=== PATIENT | male | born 1965 | race Caucasian/White ===

== ENCOUNTER 2019-06-18 10:21 | Inpatient (IN) | payer BC ==
[~2019-06-18] VITALS: Ht 175.3 cm; Wt 91.6 kg
--- OUTSIDE RECORDS SUMMARY | 2019-06-18 10:24 | XMS REPORT ---
Author Author [facility] Address Unknown Phone Unavailable Care Team Providers Care Assisted Living Nursing Director Name Role Phone LE GRIFFITHS Unavailable Unavailable Eliot FRITZ Unavailable Unavailable Problems This patient has no known problems. Allergies, Adverse Reactions, Alerts This patient has no known allergies or adverse reactions. Medications This patient has no known medications. Results Test Description Test Time Test Comments Text Results Atomic Results Result Comments ED2 CT ABD/ PELVIS W/O CON (RENAL [facility]ONE) 2019-06-15 18:07:59 Procedure: ED2 CT ABD/ PELVIS W/O CON (RENAL STONE)Order Date: 06/15/2019 5:23 PMOrdering Provider: LE Kinginical Indication: [id number]: Right sided abdominal painComparison: . 2017TECHNIQUE:CT of the abdomen and pelvis WITHOUT intravenous contrast. The abdomen andpelvis were scanned utilizing a multidetector helical scanner from the diaphragmto the lesser trochanter. Coronal and sagittal re formations were obtained.This exam was performed according to the our departmental dose-optimizationprogram which includes automated exposure control, adjustment of the mA and/orkV according to patient size and/or use of iterative reconstruction techniques.DISCUSSION:ABSENCE OF INTRAVENOUS CONTRAST DECREASES SENSITIVITY FOR DETECTION OF FOCALLESIONS AND VASCULAR PATHOLOGY.LOWER THORAX: Normal.HEPATOBILIARY: No focal hepatic lesions. No biliary ductal dilatation.SPLEEN: No splenomegaly.PANCREAS: No focal masses or ductal dilatation.ADRENALS: No adrenal nodules.KIDNEYS/URETERS: 2-3 mm nonobstructing calculi are present within the bilateralkidneys. There is no hydronephrosis.PELVIC ORGANS/BLADDER: Unremarkable.PERITONEUM / RETROPERITONEUM: No free air or fluid.LYMPH NODES: No lymphadenopathy.VESSELS: Unremarkable.GI TRACT: No distention or wall thickening. The appendix is unremarkable.BONES AND SOFT TISSUES: No acute abnormality.IMPRESSION:1. No obstructive urolithiasis in the bilateral renal collecting systems.2. Nonobstructing bilateral renal calculi.This final report was electronically signed by Dr Alyson Beltran MD 06/15/20196:01 PMDictated By: Eladio BELTRAN: 06/15/2019 18:01 ED2 CBC 2019-06-15 17:56:00 WBC (test code=WBC) 7.3 10\S\9/L 3.5-10.0 LY% (test code=LY) 22.2 % 15.0-50.0 MIDS% (test code=MIDS) 6.0 % 2.0-15.0 Granulocytes % (test code=GRA%) 71.8 % 35.0-80.0 Lymphocytes (test code=LYMPH) 1.6 10\S\9/L 0.5-5.0 MID (test code=MID) 0.5 10\S\9/L 0.1-1.5 Granulocytes (test code=GRAN) 5.2 10\S\9/L 1.2-8.0 RBC (test code=RBC) 5.17 10\S\12/L 3.50-5.50 Hemoglobin (test code=HGB) 16.6 gm/dl 11.5-16.5 Hematocrit (test code=HCT) 49.4 % 35.0-55.0 MCV (test code=MCV) 95.5 fL 75.0-100.0 MCH (test code=MCH) 32.2 pg 25.0-35.0 MCHC (test code=MCHC) 33.7 gm/dl 31.0-38.0 RDW % (test code=RDW%) 12.5 % 11.0-16.0 Platelet (test code=PLT) 197 10\S\9/L 100-400 MPV (test code=MPV) 7.8 fL 8.0-11.0 ED2 [id number] 17:56:00* Test Item Value Reference Range Comments Sodium (test code=NA) 142 mmol/l 128-145 Potassium (test code=K) 4.0 mmol/l 3.6-5.1 CO2 (test code=CO2) 27 mmol/l 18-33 Chloride (test code=CL) 106 mmol/l 98-108 Glucose (test code=GLU) 109 mg/dl 73-118 Calcium (test code=CALC) 9.7 mg/dl 8.0-10.3 BUN (test code=BUN) 12 mg/dl 7-22 Creatinine (test code=CREA) 0.8 mg/dl 0.6-1.2 Alkaline Phos (test code=ALKP) 100 U/L 42-141 ALT (SGPT) (test code=ALT) 66 U/L 10-47 AST (SGOT) (test code=AST) 48 U/L 11-38 Total Bilirubin (test code=TBIL) 1.1 mg/dl 0.2-1.6 Albumin (test code=ALB) 4.2 gm/dl 3.3-5.5 T Protein (test code=TP) 7.3 gm/dl 6.4-8.1 ED2 URINE [id number] 17:55:00* Test Item Value Reference Range Comments Color (test code=UCOLR) Yellow Lt. Yellow Clarity (test code=UCLAR) Clear Glucose (test code=UGLUC) NEGATIVE NEGATIVE Bilirubin (test code=UBILI) NEGATIVE NEGATIVE Ketones (test code=UKET) NEGATIVE NEGATIVE Specific [place] (test code=USPGR) 1.025 1.005-1.030 Blood (test code=UBLD) NEGATIVE NEGATIVE PH (test code=UPH) 6.0 4.5-8.0 Protein (test code=UPROT) NEGATIVE NEGATIVE Urobilinogen (test code=U UROB) 0.2 >0.2 Nitrite (test code=UNITR) NEGATIVE NEGATIVE Leukocyte Esterase (test code=ULEUK) NEGATIVE NEGATIVE URINALYSIS WITH [id number] 02:01:00* Test Item Value Reference Range Comments Color (test code=UCOLR) ORANGE Clarity (test code=UCLAR) CLEAR Glucose (test code=UGLUC) 100 NEGATIVE Bilirubin (test code=UBILI) NEGATIVE NEGATIVE Ketones (test code=UKET) TRACE NEGATIVE Specific [place] (test code=USPGR) 1.015 1.005-1.030 Blood (test code=UBLD) TRACE-LYSED NEGATIVE PH (test code=UPH) 5.0 4.5-8.0 Protein (test code=UPROT) TRACE NEGATIVE Urobilinogen (test code=U UROB) 2.0 >0.2 Nitrite (test code=UNITR) POSITIVE NEGATIVE Leukocyte Esterase (test code=ULEUK) NEGATIVE NEGATIVE WBC (test code=WBCUR) None Seen 0-5 RBC (test code=RBCUR) 5-10 0-5 Epithial Cells (test code=U EPI) None Seen 0-10 Mucous (test code=UMUC) Trace None Seen Bacteria (test code=UBACT) Trace None Seen,Trace ER 8LIPASE, [id number] 01:58:00* Test Item Value Reference Range Comments Lipase (test code=LIPA) 192 U/L 8-223 ER [id number] 01:58:00* Test Item Value Reference Range Comments Glucose (test code=GLU) 104 mg/dl 75-110 BUN (test code=BUN) 13.0 mg/dl 6.0-17.0 Creatinine (test code=CREA) 0.9 mg/dl 0.4-1.2 Sodium (test code=NA) 144 mmol/l 137-145 Potassium (test code=K) 4.2 mmol/l 3.5-5.0 Chloride (test code=CL) 104 mmol/l 98-107 CO2 (test code=CO2) 24 mmol/l 22-30 Calcium (test code=CALC) 9.9 mg/dl 8.4-10.2 T Protein (test code=TP) 8.4 gm/dl 5.1-8.7 Albumin (test code=ALB) 5.0 gm/dl 3.5-4.6 A/G Ratio (test code=AGRAT) 1.5 % 1.1-2.2 AST (SGOT) (test code=AST) 37 U/L 11-36 ALT (SGPT) (test code=ALT) 49 U/L 11-40 Alkaline Phos (test code=ALKP) 79 U/L 47-114 Total Bilirubin (test code=TBIL) 1.0 mg/dl 0.2-1.2 Globulin (test code=GLOBU) 3.4 gm/dl 2.3-3.5 Calcium, Corrected (test code=CALCCORR) 9.1 mg/dl 8.4-10.2 Various formulas exist for corrected serum calcium results, each yielding different values. This corrected result was based on the formula: Corrected Calcium=SerumCalcium + [0.8 * ( 4 - SerumAlbumin)] EGFR if (test code=EGFRAA) >60 mL/min/1.73m\S\2 EGFR if Non- (test code=EGFRNA) >60 mL/min/1.73m\S\2 Estimated Glomerular Filtration Rate (eGFR) Reference Intervals Decision Points for 18 years and older and average body mass: >=60 Does not exclude kidney disease. 30 - 59 Suggests moderate chronic kidney disease and indicates the need for further investigation including assessment of proteinuria and cardiovascular factors. < 30 Usually indicates a need for referral for assessment and management of chronic kidney failure. CBC WITH AUTO [id number] 01:38:00* Test Item Value Reference Range Comments WBC (test code=WBC) 7.0 k/ul 4.8-10.8 RBC (test code=RBC) 5.20 Millions/ul 4.70-6.10 Hemoglobin (test code=HGB) 16.5 gm/dl 14.0-18.0 Hematocrit (test code=HCT) 48.6 % 42.0-50.0 MCV (test code=MCV) 93.4 fL 80.0-94.0 MCH (test code=MCH) 31.7 pg 27.0-31.0 MCHC (test code=MCHC) 33.9 gm/dl 33.0-37.0 RDW (test code=RDWVC) 12.2 % 11.5-14.5 Platelet (test code=PLT) 224 10\S\3/ul 130-400 MPV (test code=MPV) 7.3 fL 7.4-10.4 NE% (test code=NE) 61.2 % 42.0-75.0 LY% (test code=LY) 29.9 % 13.0-42.0 MO% (test code=MO) 7.7 % 4.0-14.0 EO% (test code=EO) 0.9 % 1.0-3.0 BA% (test code=BA) 0.3 % 1.0-3.0 NRBC, Auto (test code=NRBC_AUTO) 0
[2019-06-18 11:02] LABS: BASOPHILS % 0.3 % (0.0-1.0); EOSINOPHILS # (AUTO) 0.1 (0.0-0.4); EOSINOPHILS % 0.9 % (0.0-6.0); HEMATOCRIT 45.6 % (38.2-49.6); HEMOGLOBIN 16.2 g/dL (14.0-18.0); LYMPHOCYTES # (AUTO) 1.7 (1.0-3.2); LYMPHOCYTES % 24.2 % (18.0-39.1); MEAN CORPUSCULAR HEMOGLOBIN 32.3 pg (28-32); MEAN CORPUSCULAR HGB CONC 35.5 g/dL (31-35); MONOCYTES # (AUTO) 0.6 (0.2-0.8); NEUTROPHILS # (AUTO) 4.5 (2.1-6.9); NEUTROPHILS % 65.7 % (38.7-80.0); PLATELET COUNT 232 x10e3/uL (140-360); RED BLOOD COUNT 5.01 x10e6/uL (4.3-5.7); RED CELL DISTRIBUTION WIDTH 11.7 % (11.7-14.4)
[2019-06-18 11:07] LABS: CLARITY,URINE HAZY (CLEAR); COLOR,URINE YELLOW (YELLOW); LEUKOCYTE ESTERASE ,URINE NEGATIVE (NEGATIVE)
[2019-06-18 11:08] LABS: BILIRUBIN,URINE NEGATIVE (NEGATIVE); KETONES,URINE NEGATIVE (NEGATIVE); NITRITE,URINE NEGATIVE (NEGATIVE); PROTEIN,URINE DIPSTICK NEGATIVE (NEGATIVE); URINE UROBILINOGEN 0.2 mg/dL (0.2 - 1)
[2019-06-18 11:14] LABS: BACTERIA,URINE MODERATE /HPF; EPITHELIAL CELLS,URINE MODERATE /LPF; MUCUS,URINE MODERATE (RARE); RBC,URINE 0-5 /HPF (0-5)
[2019-06-18 11:35] LABS: ALANINE AMINOTRANSFERASE 61 IU/L (0-55); ALBUMIN 4.4 g/dL (3.5-5.0); ALBUMIN/GLOBULIN RATIO 1.5 (0.8-2.0); ALKALINE PHOSPHATASE 84 IU/L (40-150); ANION GAP 15.8 mmol/L (8-16); BLOOD UREA NITROGEN 10 mg/dL (7-26); BUN/CREATININE RATIO 10 (6-25); CALCIUM 9.8 mg/dL (8.4-10.2); CARBON DIOXIDE 23 mmol/L (22-29); CHLORIDE 100 mmol/L (98-107); CREATININE, SERUM 1.01 mg/dL (0.72-1.25); EST GLOMERULAR FILTRATION RATE > 60 ML/MIN (60-); GLUCOSE 105 mg/dL (74-118); POTASSIUM 3.8 mmol/L (3.5-5.1); SODIUM 135 mmol/L (136-145)
[2019-06-18] MEDS ORDERED: MORPHINE SULFATE 2 MG/ML SYR 1ML IV STA (11:46)
[2019-06-18] MEDS ORDERED: KETOROLAC TROMETHAMINE 30 MG/ML VIAL IV STA (11:46)
[2019-06-18] MEDS ORDERED: ONDANSETRON HCL INJ 2MG/ML 2ML 2 MG/ML VIAL IV STA (11:46)
[2019-06-18] MEDS ORDERED: SODIUM CHLORIDE 0.9% 1000ML 1,000 ML IV STA (11:46)
[2019-06-18] MEDS ORDERED: DEXAMETHASONE SOD PHOS 10 MG/1 ML VIAL IV ONE (12:00)
--- NOTE | 2019-06-18 13:12 | Diagnostic Imaging Report ---
CT of the abdomen and pelvis History: Groin pain Comparison: None available. Technique: Multidetector CT scanning of the abdomen and pelvis was performed from the level of the lung bases to the inferior pubic ramus, with IV contrast. DOSE REDUCTION: The examination was performed according to departmental dose-optimization program which includes automated exposure control, adjustment of the mA and/or kV according to patient size and/or use of iterative reconstruction technique. Discussion: The lung bases are clear. No focal hepatic lesions are identified. The gallbladder is present nondistended. No radiopaque gallstones are identified. There is no intrahepatic or extrahepatic biliary dilatation. The spleen is within normal limits. The bilateral adrenal glands are unremarkable. The pancreas is normal in attenuation. There is no pancreatic ductal dilatation or peripancreatic inflammatory stranding. The kidneys are normal in size and enhance symmetrically. Nonobstructing renal calculi are present bilaterally. In the upper pole of the right kidney there are 4 mm and 2 mm nonobstructing calculi. In the midpole there is a 3 mm nonobstructing calculus. And in the lower pole there are 3 mm and two 2 mm renal calculi. The left kidney the upper pole contains a 6 mm calculus at a 4 mm calculus. Punctate renal calculi are present in the left midpole. The stomach, small, and large bowel are nondistended. There is no evidence of obstruction. No bowel wall thickening is appreciated. The appendix is normal. There are scattered colonic diverticula without evidence of acute diverticulitis. There is no free intraperitoneal air or ascites. The urinary bladder is within normal limits. The prostate is mildly enlarged measuring 5.1 cm in diameter. No enlarged abdominal or retroperitoneal lymph nodes are identified. There are mild multilevel degenerative changes of the thoracolumbar spine. No acute osseous abnormalities are identified. IMPRESSION: 1. Nonobstructive bilateral renal calculi. 2. Colonic diverticulosis without evidence of acute diverticulitis. 3. Mild prostamegaly. Signed by: Ian Bass MD on 06/18/2019 1:08 PM
[2019-06-18] MEDS: ONDANSETRON HCL INJ 2MG/ML 2ML 2 MG/ML VIAL IV PRN ×2 (15:05→21:46)
[2019-06-18] MEDS: SODIUM CHLORIDE 0.9% 1000ML 1,000 ML IV SCH (15:10)
[2019-06-18] MEDS: HYDROMORPHONE 1MG/1ML INJ IV PRN ×3 (15:15→21:45)
[2019-06-18] MEDS ORDERED: IOPAMIDOL 370 MG/ML 200 ML INFUS..BTL INJ ONE (15:45)
[2019-06-18] MEDS ORDERED: SODIUM CHLORIDE 0.9% 50ML 50 ML ONE (15:45)
--- NOTE | 2019-06-18 18:49 | Diagnostic Imaging Report ---
EXAMINATION: MRI of the lumbar spine without contrast HISTORY: Right low back pain since 06/11/2019 COMPARISON: Abdomen CT performed the same day TECHNIQUE: Sagittal T1, T2, STIR; axial T2 and proton density. FINDINGS: It is assumed that there are 5 lumbar vertebrae. Transitional lumbosacral vertebra, based on the last rib-bearing vertebra will be considered as sacralized L5. The last well-formed intervertebral disc corresponds to L5-S1. Curvature/Alignment: Normal lordosis. Vertebrae: No evidence of recent fracture, infection, or neoplasm. Conus: Normal, terminating at T12-L1 Cauda equina: Circumferential narrowing of the thecal sac at L4-L5 due to canal stenosis with cauda equina crowding. Otherwise unremarkable. Lower thoracic: Minimal symmetric disc bulge at T10-T11 shallow Schmorl nodes without canal or foraminal stenoses. Minimal disc bulge at T12-L1 without canal stenosis Paraspinal soft tissues: Partially visualized remain in distention of the urinary bladder, otherwise no abnormalities. Degenerative changes: L1-L2: Minimal symmetric disc bulge. No canal or foraminal stenosis. L2-L3: Minimal decreased disc height and T2 signal intensity, asymmetric left disc bulge and facet arthropathy. Mild left foraminal narrowing. L3-L4: Decreased disc height and T2 signal intensity, symmetric disc poles, ligament labor beginning of osteonecrosis. Mild canal and bilateral foraminal narrowing worse on the right. L4-L5: Decreased disc height and T2 signal intensity, symmetric disc bulge, ligamenta flava thickening and moderate facet arthropathy. Moderate spinal canal and left foraminal stenoses. Mild right foraminal stenoses L5-S1: Unremarkable. Sacroiliac joints: Unremarkable. IMPRESSION: 1. Moderate degenerative spinal canal and left foraminal stenoses at L4-L5. 2. Mild degenerative canal and bilateral foraminal stenoses at L3-L4. 3. Otherwise no significant degenerative changes. Signed by: Dr. Emma Baxter M.D. on 06/18/2019 6:46 PM
[2019-06-18 21:00] VITALS: BP 158/93
[2019-06-18 21:15] VITALS: BP 158/93
[2019-06-19] VITALS (7 sets, daily range): BP systolic 129–157; BP diastolic 67–92
--- NOTE | 2019-06-19 01:20 | History and Physical ---
This 54-year-old man comes in with groin pain, right-sided. HISTORY OF PRESENT ILLNESS: Mr. Ravinder Garcia with the history of abdominal pain. For over a week, the patient has been suffering from abdominal pain right groin to be specific moderate to severe and has been seen in the ED at [place] for the same. CT scan was done, no acute etiology was seen. The patient was given Tylenol No. 3 and sent home. However, the patient came to his workplace which was and the patient started to have progressive groin pain could not walk on it. He came in the emergency room and was admitted for pain control, intractable inguinal pain. PAST MEDICAL HISTORY: No medical history noted. MEDICATIONS: The patient does not take any medications except the hydrocodone. SURGICAL HISTORY: History of a multiple inguinal surgeries done in the past secondary to inguinal hernia. The patient has no other medical history. SOCIAL HISTORY: No EtOH. No IV drug abuse. Lives with . REVIEW OF SYSTEMS: Negative for chest pain. No shortness of breath. No nausea. No vomiting. No diarrhea. No constipation. No rectal bleeding. No hematochezia. No hematemesis. FAMILY HISTORY: Noncontributory. PHYSICAL EXAMINATION: VITAL SIGNS: Temperature is 98.0, pulse of 99, respirations of 20, blood pressure is 154/117. HEENT: Normocephalic, atraumatic. Pupils are reactive to light and accommodation. CVS: S1 and S2, tachy. ABDOMEN: Tender in the right inguinal area. GENITALIA: The male genital is normal. Testicles are normal. No inguinal hernia present. No direct or indirect hernias present. No ventral hernias present either. LUNGS: Clear. HEART: S1, S2 is normal. On examination of the piggyback clerk in the L2, L3 and L4 area. Specifically, the right-sided paraspinal muscles are tender. LABORATORY VALUES: White count of 6.9, hemoglobin of 16.2, hematocrit of 45.6. Chemistry sodium 135, potassium is 3.8, BUN of 10, creatinine of 1.01. IMAGING STUDIES: Abdominal CT and pelvis CT showed nonobstructive bilateral renal calculi, colonic diverticulosis and mild prostatomegaly. MRI of the lumbar spine is pending. ASSESSMENT: Mr. Ravinder Garcia with intractable abdominal pain probably lumbar in nature L2-L3 or L1-L2 radicular. MRI is done. Awaiting read from the radiologist. Continue with hydromorphone for pain control, if needed Neurosurgical consult will be done for radiculopathy. Further recommendation per clinical course. We will continue to monitor the patient for pain control. Possible discharge tomorrow depending on MRI results and possible neurosurgery consult. MD KEMI Young/ESTHERL /[id number]
[2019-06-19] MEDS: SODIUM CHLORIDE 0.9% 1000ML 1,000 ML IV SCH ×4 (02:41→22:36)
[2019-06-19] MEDS: ONDANSETRON HCL INJ 2MG/ML 2ML 2 MG/ML VIAL IV PRN ×4 (02:41→23:53)
[2019-06-19] MEDS: HYDROMORPHONE 1MG/1ML INJ IV PRN ×9 (02:41→23:53)
[2019-06-19 05:12] LABS: BASOPHILS % 0.1 % (0.0-1.0); EOSINOPHILS % 0.1 % (0.0-6.0); HEMOGLOBIN 15.1 g/dL (14.0-18.0); LYMPHOCYTES # (AUTO) 1.2 (1.0-3.2); LYMPHOCYTES % 12.1 % (18.0-39.1); MEAN CORPUSCULAR HEMOGLOBIN 32.5 pg (28-32); MEAN CORPUSCULAR HGB CONC 35.1 g/dL (31-35); MEAN CORPUSCULAR VOLUME 92.5 fL (81-99); MONOCYTES # (AUTO) 0.9 (0.2-0.8); MONOCYTES % 8.7 % (4.4-11.3); NEUTROPHILS # (AUTO) 7.8 (2.1-6.9); NEUTROPHILS % 78.4 % (38.7-80.0); PLATELET COUNT 240 x10e3/uL (140-360); RED BLOOD COUNT 4.65 x10e6/uL (4.3-5.7); RED CELL DISTRIBUTION WIDTH 11.6 % (11.7-14.4)
[2019-06-19 05:28] LABS: ANION GAP 13.2 mmol/L (8-16); BLOOD UREA NITROGEN 11 mg/dL (7-26); BUN/CREATININE RATIO 11 (6-25); CALCIUM 9.1 mg/dL (8.4-10.2); CARBON DIOXIDE 22 mmol/L (22-29); CHLORIDE 106 mmol/L (98-107); CREATININE, SERUM 0.99 mg/dL (0.72-1.25); EST GLOMERULAR FILTRATION RATE > 60 ML/MIN (60-); GLUCOSE 122 mg/dL (74-118); POTASSIUM 4.2 mmol/L (3.5-5.1); SODIUM 137 mmol/L (136-145)
--- NOTE | 2019-06-19 09:36 | Progress Note ---
DATE: SUBJECTIVE: A 54-year-old male who came in with right inguinal pain. MRI was done. The patient did show some changes in the lumbar vertebrae, continues to have pain, cannot ambulate. On extension of the hip and also on weightbearing, the patient has excruciating pain. He is on Dilaudid 1 mg injections as needed for pain every 6 hours. Currently, otherwise asymptomatic. OBJECTIVE: VITAL SIGNS: Temperature is 97.3, pulse of 94, respirations of 20, blood pressure is 129/70, pulse oximetry of 93% on room air. HEENT: Normocephalic and atraumatic. Pupils are reactive to light and accommodation. CVS: S1 and S2 normal. Regular rate and rhythm. ABDOMEN: Nontender, nondistended. Tender in the lumbar spine. EXTREMITIES: No clubbing, no cyanosis, no edema. IMAGING DATA: MRI results done yesterday shows moderate degenerative spinal and left foraminal stenosis L4-L5, bilateral foraminal stenosis of L3 and L4 and the patient does show beginning of osteonecrosis in L3 and L4 and otherwise degenerative changes. ASSESSMENT: This is a 54-year-old gentleman with intractable pain, probably lumbar in nature. With the amount of pain that he is experiencing, neurosurgical consult will be initiated with Dr. Johnson and follow up with Dr. Johnson is advice. Further recommendation per clinical course. We will continue monitoring the patient. MD KEMI Young/MODL /[id number]
--- NOTE | 2019-06-19 13:53 | NUR ---
Dr. Lainez notified of patient's c/o unrelieved pain 02/17 along with a cough. New orders received.
[2019-06-19] MEDS: KETOROLAC TROMETHAMINE 30 MG/ML VIAL IV PRN (14:04)
[2019-06-19] MEDS: GUAIFENESIN 200 MG/10 ML UDC PO PRN (14:05)
--- NOTE | 2019-06-19 14:35 | NUR ---
Visit made by the Spiritual Care Department Pastoral Visitor, Laila Lugo. PV provided pastoral presence, prayer, hospitality, and supportive listening. Pastoral Visitor informed pt/family of the scope of Manager Housekeeping Services and availability. MANISH LAWSON Twisting Machine Operator Spiritual Care Department O: [phone] Pager: [phone] ([phone] number calling from)
--- NOTE | 2019-06-19 15:30 | NUR ---
Pending consultation by Dr. Johnson for clearance for discharge.
[2019-06-19 18:47] LABS: INR 0.88; PROTHROMBIN TIME 12.4 seconds (11.9-14.5)
--- NOTE | 2019-06-19 23:36 | Operative Report ---
DATE OF PROCEDURE: 06/19/2019 SURGEON: Akash Johnson MD REASON FOR CONSULTATION: Severe low back and right leg pain. HISTORY OF PRESENT ILLNESS: The patient is a 54-year-old man, who was admitted to the emergency room with a one-week history of excruciating low back pain, which radiates to the right groin and down the right leg. He is unable to stand and ambulate as a result of this pain as the pain gets substantially worse with standing. He denies any radiating pain in the left leg. During this admission, other etiologies such as a hernia and obstructive renal calculi have been excluded. Several small nonobstructive renal calculi have been found on CT of the abdomen. The patient does not have any dysuria or hematuria. The groin pain started at the same time as the severe low back and right leg pain. PHYSICAL EXAMINATION: On examination, the patient is lying in his hospital bed on his side in a position. He has great difficulty lying on his back and straightening his legs. Straight leg raising is positive on the right at 20 degrees. Cross straight leg raising on the left provokes right lumbar pain. Motor strength appears to be preserved in the ankles. He is able to sit on the edge of the bed with pain. He can stand for a few seconds with a stooped posture, but develops markedly exacerbated low back pain radiating down the right leg into the groin. Deep tendon reflexes are 2+ and symmetric in the patella and Achilles tendons. Plantar responses are flexor. MRI of the lumbar spine was reviewed. 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 He has severe L4-L5 bilateral facet arthropathy, which produces moderately severe bilateral lateral recess stenosis. 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 I had extensive discussion with the patient and his . I have discussed options of continued conservative treatment including physical therapy and epidural steroid injections and facet injections. However, the pain finds his pain to be intolerable and he cannot stand and ambulate. He wishes to proceed with surgical treatment. The operation will consist of right L4-L5 laminotomy and medial facetectomy, and microsurgical lateral recess decompression. Depending on the intraoperative findings, I may be able to reach from right to left and decompress the left lateral recess as well. The risks, benefits, and alternatives were explained to the patient and his in great detail including risks of infection, bleeding and CSF leakage and the possibility of persistent pain, numbness, or weakness. He understands all these issues and gives informed consent to proceed with surgery. Akash Johnson MD PP/ALFONSO /[id number]
[2019-06-20] VITALS (9 sets, daily range): BP systolic 122–167; BP diastolic 74–98
[2019-06-20] MEDS: HYDROMORPHONE 1MG/1ML INJ IV PRN ×6 (03:44→19:38)
[2019-06-20] MEDS: GUAIFENESIN 200 MG/10 ML UDC PO PRN (08:12)
--- NOTE | 2019-06-20 09:54 | Progress Note ---
DATE: SUBJECTIVE: The patient is here for groin pain. The patient with lumbar symptoms and radicular symptoms, seen by Dr. Johnson yesterday. The patient has been scheduled for surgery with Dr. Johnson tomorrow with laminectomy and facetectomy. The patient currently continues to have pain, described as 8/10, goes into position every time the pain medicine runs out. The patient is currently on Dilaudid 1 mg q.3 hours and also Toradol intermittently in between. No muscle relaxant has been given at this time. MEDICATIONS: Hydromorphone, Zofran, guaifenesin, ketorolac. The patient is also having fluid resuscitation at 125 mL an hour. PHYSICAL EXAMINATION: VITAL SIGNS: Temperature is 97.2, pulse of 72, respirations of 16, blood pressure is 122/89, pulse oximetry of 95% on room air. GENERAL: In pain. HEENT: Normocephalic and atraumatic. CVS: S1 and S2 normal. Regular rate and rhythm. ABDOMEN: Nontender and nondistended. MUSCULOSKELETAL: Lumbar pain present. The patient has reflux pain and tenderness on examination of the paraspinal muscles. LABORATORY VALUES: The patient's white count is normal today, hemoglobin of 15.1, hematocrit of 43.2. Chemistry show a BUN of 11, creatinine 0.99. ALT was elevated yesterday 61. ASSESSMENT: Mr. Ravinder Garcia is a 54-year-old male, who comes in with: 1. Intractable pain. 2. Lumbar radiculopathy. 3. History of hypertension. PLAN: The patient is scheduled for a laminectomy and facetectomy tomorrow. The patient will be on pain medication, IV Dilaudid and Toradol as needed. We will cut down his fluid to 75 mL an hour. Further recommendation per clinical course. We will continue to monitor the patient and continue with Dr. Johnson's recommendations. MD KEMI Young/MODL /[id number]
--- NOTE | 2019-06-20 10:00 | NUR ---
ASSESSMENT: Spiritual concern Pt hopeful for successful procedure. Pt states he is looking forward to "procedure tomorrow" to regain mobility. Intervention: Provided hospitality and empathic listening. Facilitated illness review. Provided prayer. Outcome: Provided information on how to reach marine driller, if needed. MANISH LAWSON Wet And Dry Sugar Bin Operator Spiritual Care Department O: [phone] Pager: [phone] ([phone] number calling from)
[2019-06-20] MEDS: SODIUM CHLORIDE 0.9% 1000ML 1,000 ML IV SCH (13:00)
[2019-06-20] MEDS: KETOROLAC TROMETHAMINE 30 MG/ML VIAL IV PRN ×2 (14:33→22:24)
[2019-06-20] MEDS: ONDANSETRON HCL INJ 2MG/ML 2ML 2 MG/ML VIAL IV PRN (19:38)
--- NOTE | 2019-06-20 19:40 | NUR ---
Received bedside report from day nurse. Patient awake and resting in bed, c/o pain. Administered PRN pain and nausea medication. All safety measures in place. Will continue to monitor.
[2019-06-21] VITALS (8 sets, daily range): BP systolic 132–157; BP diastolic 82–99
[2019-06-21] MEDS: HYDROMORPHONE 1MG/1ML INJ IV PRN (03:36)
[2019-06-21] MEDS: SODIUM CHLORIDE 0.9% 1000ML 1,000 ML IV SCH ×2 (03:37→08:59)
--- NOTE | 2019-06-21 07:07 | NUR ---
Bedside report given to day nurse. Patient resting in bed, no s/s of distress or c/o pain at this time. All safety measures in place. Family at bedside.
[2019-06-21] MEDS ORDERED: LIDOCAINE HCL (LTA) 4 ML SOLN ONE (07:08)
[2019-06-21] MEDS ORDERED: ACETAMINOPHEN 1000 MG/100 ML 100 ML IV ONE (07:08)
[2019-06-21] MEDS ORDERED: IBUPROFEN 800MG/ 250ML 250 ML IV ONE (07:08)
[2019-06-21] MEDS ORDERED: LACTATED RINGER'S 1,000 ML IV SCH (10:22)
[2019-06-21] MEDS ORDERED: ONDANSETRON HCL INJ 2MG/ML 2ML 2 MG/ML VIAL IV PRN (10:30)
[2019-06-21] MEDS ORDERED: PROMETHAZINE HCL (IM) 25 MG/ML VIAL IM PRN (10:30)
[2019-06-21] MEDS ORDERED: ACETAMINOPHEN 325 MG TAB PO PRN (10:30)
[2019-06-21] MEDS ORDERED: CARISOPRODOL 350 MG TAB PO PRN (10:30)
[2019-06-21] MEDS ORDERED: MORPHINE SULFATE 5 MG/ML VIAL IM PRN (10:30)
[2019-06-21] MEDS ORDERED: CEPACOL SORE THROAT LOZENGES PO PRN (10:30)
[2019-06-21] MEDS ORDERED: MAGNESIUM/ALUMINUM/SIMETHICONE 30 ML UDC PO PRN (10:30)
--- NOTE | 2019-06-21 10:47 | Progress Note ---
DATE: SUBJECTIVE: The patient comes in with acute intractable back pain with doubling over. The patient still continues to have the pain, but controlled moderately by hydromorphone and ketorolac injection, scheduled for possible laminectomy and esophagectomy today. The patient is afebrile. No chest pain. No shortness of breath. Did complain of some congestion. OBJECTIVE: VITAL SIGNS: Temperature is 97.1, pulse of 66, respirations of 18, blood pressure is 141/83, pulse oximetry of 95%. HEENT: Normocephalic, atraumatic. Pupils are reactive to light and accommodation. CVS: S1 and S2 normal. Regular rate and rhythm. LUNGS: Clear to auscultation. BACK: Tenderness present, paraspinal muscles tender positive. LABORATORY VALUES: None done today. Labs from yesterday are within normal limits. ASSESSMENT: 1. Intractable pain. 2. Lumbar radiculopathy. 3. History of hypertension. PLAN: 1. Laminectomy and facetectomy today. 2. The patient will continue on IV Dilaudid and Toradol. 3. Continue with fluids. 4. The patient will be discharged home if everything goes within normal limits. Further recommendation per clinical course. MD KEMI Young/ESTHERL /[id number]
[2019-06-21] MEDS ORDERED: FENTANYL CITRATE/PF 100MCG/2 ML INJ ONE ×2 (10:59→20:22)
--- NOTE | 2019-06-21 13:10 | NUR ---
ASSESSMENT: Spiritual concern Pt hopeful for recovery following procedure. Pt's at bedside. Intervention: Provided supportive pastoral presence and blessing. Outcome: Pt & expressed appreciation for visit. No need to follow at this time. MANISH LAWSON Rn Ambulatory Spiritual Care Department O: [phone] Pager: [phone] ([phone] number calling from)
[2019-06-21] MEDS: OXYCODONE/ACETAMINOPHEN 5-325 1 EACH TABLET PO PRN (15:30)
[2019-06-21] MEDS: CEFAZOLIN SOD 1 GM/NS 50ML 50 ML IV SCH (17:08)
--- NOTE | 2019-06-21 17:09 | Operative Report ---
DATE OF PROCEDURE: 06/21/2019 SURGEON: Akash Johnson MD PREOPERATIVE DIAGNOSIS: L4-5 spinal stenosis with radiculopathy and neurogenic claudication, M48.062. POSTOPERATIVE DIAGNOSIS: L4-5 spinal stenosis with radiculopathy and neurogenic claudication, M48.062. PROCEDURES: 1. Right L4-L5 laminotomy, medial facetectomy, and microsurgical lateral recess decompression, 12316. 2. Left L4-5 lateral recess decompression through unilateral right-sided approach, 54387. ANESTHESIA: General. INDICATIONS: The patient is a 54-year-old man, who presents with intractable radicular pain in the right leg and right groin and inability to ambulate because of this pain. 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 He was taken to surgery for lateral recess decompression. PROCEDURE IN DETAIL: After induction of general anesthesia, the patient was placed on the operating table in prone position on the Robbie frame. The lumbar region was prepped and draped in sterile fashion. A preoperative x-ray was obtained. A small midline incision was created. Lumbar fascia was opened in the right of midline and a subperiosteal dissection was carried out to expose the right side of the L4 and L5 lamina and the medial aspect of the facet joint. The x-ray revealed localization at the L5-S1 segment and one level was counted above this area to expose the L4-5 segment. Under the operating microscope, the inferior aspect of the lamina of L4 and the medial rim of the hypertrophic L4-L5 facet joint and superior aspect of lamina of L5 were drilled away. The markedly hypertrophic ligamentum flavum was resected from midline to the right side until the right side of the dura and the right L5 nerve root were fully exposed and decompressed. The nerve root was then retracted medially and underlying L4-5 disk was examined. A shallow central osteophyte was palpated, but no acute disk herniation was noted. The diskectomy was not performed. The table was then tilted towards the left side. The base of the spinous processes of L4 and L5 were drilled. The ligamentum flavum on the contralateral left side was then dissected with a Navarre 4 instrument from the undersurface of the contralateral lamina and then resected in a piecemeal fashion with a 2 mm Kerrison rongeur until the left L5 lateral recess was reached and decompressed. In this fashion, bilateral lateral recess decompression was achieved through unilateral right-sided laminotomy. Meticulous hemostasis was secured. The lumbar fascia was closed with 0-Vicryl suture. Subcutaneous layer was closed with 2-0 Vicryl sutures. The skin was closed with 3-0 Monocryl sutures in subcuticular fashion. Steri-Strips and sterile dressing were applied. The patient was awakened, extubated, and taken to postanesthesia care unit in stable condition. No intraoperative complications were encountered. Estimated blood loss was 10 mL. Akash Johnson MD PP/ALFONSO /[id number]
[2019-06-21] MEDS: HYDROMORPHONE 2MG/ML 2 MG/ML ML IV PRN ×2 (18:00→19:08)
[2019-06-21] MEDS ORDERED: PROPOFOL IV EMULSION 10 MG/ML 20 ML VIAL ONE (20:22)
[2019-06-21] MEDS ORDERED: MIDAZOLAM HCL 2 MG/2 ML VIAL ONE (20:22)
[2019-06-21] MEDS ORDERED: GLYCOPYRROLATE INJ 0.2 MG/ML VIAL ONE (20:22)
[2019-06-21] MEDS ORDERED: ROCURONIUM BROMIDE 10 MG/ML 5ML VIAL ONE (20:22)
[2019-06-21] MEDS ORDERED: LIDOCAINE HCL 2% LOCAL INJ 5 ML SDV VIAL INJ ONE (20:22)
[2019-06-21] MEDS ORDERED: SEVOFLURANE INHAL SOLN 250 ML PEN BTL ONE (20:22)
[2019-06-21] MEDS ORDERED: DEXAMETHASONE SOD PHOS INJ 4 MG/ML VIAL ONE (20:22)
[2019-06-21] MEDS ORDERED: NEOSTIGMINE 1 MG/ML 10ML VIAL ONE (20:22)
[2019-06-21] MEDS ORDERED: ONDANSETRON HCL INJ 2MG/ML 2ML 2 MG/ML VIAL ONE (20:22)
[2019-06-21] MEDS ORDERED: MORPHINE SULFATE INJ 4 MG/ML INJ 1ML IM PRN (20:45)
[2019-06-21] MEDS ORDERED: ZOLPIDEM TARTRATE 5 MG TAB PO PRN (21:00)
[2019-06-22] VITALS: BP 124/63
[2019-06-22] MEDS: CEFAZOLIN SOD 1 GM/NS 50ML 50 ML IV SCH ×2 (00:47→09:00)
[2019-06-22 04:00] VITALS: BP 127/76
--- NOTE | 2019-06-22 07:20 | NUR ---
Gave bedside report to oncoming nurse. Patient resting in bed, no s/s of distress or c/o pain at this time. Family at bedside. All safety measures in place.
[2019-06-22 07:31] VITALS: BP 137/82
[2019-06-22 08:47] VITALS: BP 137/82
[2019-06-22] MEDS: OXYCODONE/ACETAMINOPHEN 5-325 1 EACH TABLET PO PRN (08:49)
[2019-06-22] MEDS ORDERED: NORCO 7.5-3251 EACH PO (09:24)
[2019-06-22] MEDS ORDERED: AMBIEN10 MG PO (09:24)
--- NOTE | 2019-06-22 10:00 | NUR ---
DISCHARGE INSTRUCTIONS GIVEN HE SAID HE UNDERSTOOD
--- NOTE | 2019-06-22 10:24 | Progress Note ---
DATE: Discharge Summary/Progress Note SUBJECTIVE: The patient is a 54-year-old gentleman who comes in with lumbar pain. The patient underwent surgery yesterday. The patient underwent right L4-L5 laminectomy and recess decompression. The patient is feeling much better. The pain is much better. The patient has ambulated ever since. OBJECTIVE: VITAL SIGNS: Temperature is 97.8, pulse is 79, respirations of 19, blood pressure is 127/76, and pulse oximetry of 96%. HEENT: Normocephalic, atraumatic. Pupils are reactive to light and accommodation. CVS: S1 and S2 normal. Regular rate and rhythm. ABDOMEN: Nontender, nondistended. LUNGS: Clear to auscultation. BACK: Surgical scar is clean and dry. EXTREMITIES: No clubbing, no cyanosis, no edema. ASSESSMENT: Mr. Ravinder Garcia is a 54-year-old with intractable low back pain, status post surgery. The patient is currently stable, can be discharged today. [place] has been written by Dr. Johnson already. We will write a prescription for 5 to 10 Ambien for insomnia. Further recommendation as an outpatient, the patient is to follow up with his primary care physician in a short period. MD KEMI Young/[place] /[id number]
--- NOTE | 2019-06-22 10:36 | NUR ---
PT WENT HOME IN SAFE CONDITION WITH HIS
== END 2019-06-22 10:37 | disposition home or self-care (01) | DRG 517 ==
LOC: ER 10:21 → ERHOLD 15:13 → MED/SURG2 21:15 → OBSVTOIN 06-20 08:09
PROVIDERS: ADMIT Family Medicine; ATTEND Family Medicine
PROC: 01NB0ZZ Release Lumbar Nerve, Open Approach (ICD-10-PCS; principal; 2019-06-21 09:13)
DX: M48.062 Spinal stenosis, lumbar region with neurogenic claudication (principal); S76.111A Strain of right quadriceps muscle, fascia and tendon, initial encounter; Z82.49 Family history of ischemic heart disease and other diseases of the circulatory system; Z87.442 Personal history of urinary calculi; I10 Essential (primary) hypertension
CPT/HCPCS: 36415; 72020; 72148; 74177; 80048; 80053; 81001; 85025; 85610; 85730; 88304; 99284; G0378; J0690; J1100; J1170; J1885; J2001; J2250; J2270; J2405; J2550; J2710; J3010; J7030; J7121; Q9967